=== PATIENT | female | born 1970 | race Caucasian/White ===

== ENCOUNTER → 2016-03-05 | Outpatient (CLI) | payer BC ==
[~2016-03-05] MED LIST: ACHYD1T PO; ALPR.5T; ALPR.5T PO; BYETTA; DCS100C PO; ESTR1TAB24 PO; IBP800T PO; METF-380 PO; METF500T8
--- OUTSIDE RECORDS SUMMARY | 2016-03-05 13:03 | XMS REPORT | Continuity of Care Document ---
Author Author [facility] Organization [facility] Address Unknown Phone Unavailable Care Team Providers Care Landscape Manager Name Role Phone PCP Unavailable Source Comments Some departments are not documenting in the electronic medical record. If you do not see the information that you expected, contact Release of Information in the Health Information Management department at [phone] for further assistance in locating additional records.[facility] Active Allergies and Adverse Reactions Allergen Noted Date Severity Reactions Comments Tetracycline 10/13/2010 High UNKNOWN Patient reports that as a that she received tetracycline & had "brain swelling". Has not had it since. Current Medications Prescription Sig. Disp. Refills Start End Date Status Date metFORMIN (GLUCOPHAGE) Take 1,000 mg by mouth Active 500 mg PO tablet twice daily with meals. States takes "ER" type. ALPRAZolam (XANAX) 0.25 Take 0.25 mg by mouth Active mg PO tablet twice daily as needed. Active Problems Problem Noted Date Localized adiposity - abdomen, flanks 07/10/2012 Breast ptosis 07/10/2012 Social History Tobacco Use Types Packs/Day Years Used Date Current Every Day Smoker 0.5 15 Smokeless Tobacco: Never Used Last Filed Vital Signs Vital Sign Reading Time Taken Blood Pressure 125/79 10/13/2010 10:04 AM CDT Pulse 69 10/13/2010 10:04 AM CDT Temperature - - Respiratory Rate 16 10/13/2010 10:04 AM CDT Height 1.702 m (5' 7") 10/13/2010 10:04 AM CDT Weight 80.287 kg (177 lb) 10/13/2010 10:04 AM CDT Body Mass Index 27.72 10/13/2010 10:04 AM CDT Oxygen Saturation - - Plan of Care Health Maintenance Due Date Last Done Comments Pertussis Vaccine 02/05/1979 Tetanus Vaccine 02/05/1985 Physical (Comprehensive) 07/14/2011 07/13/2010 Exam Breast Cancer Screening 02/13/2012 02/12/2010 Cervical Cancer Screening 07/13/2013 07/13/2010 Influenza Vaccine 10/16/2015 Results from Last 3 Months Not on file
--- NOTE | 2016-03-05 13:53 | Diagnostic Imaging Report ---
Bilateral screening mammogram. The current study was also evaluated with a Computer Aided Detection (CAD) system. INDICATION: Screening. No current complaints stated on the questionnaire. COMPARISON: 01/03/2014. FINDINGS: The breasts are composed of scattered fibroglandular densities. There are occasional benign-appearing calcifications. Allowing for technique and positional differences, no suspicious change is seen. IMPRESSION: No significant change. ACR BI-RADS Category 2: Benign findings. Result letter will be mailed to the patient. Note: At least 10% of breast cancer is not imaged by mammography. Dictated by: Dictated on workstation # [id number]
== END ==
LOC: RAD 12:59
PROVIDERS: ATTEND Nurse Practitioner Family
DX: Z12.31 Encounter for screening mammogram for malignant neoplasm of breast (principal)

== ENCOUNTER → 2020-01-15 | Outpatient (CLI) | payer OTHER ==
--- NOTE | 2020-01-15 13:04 | Diagnostic Imaging Report ---
INDICATION: Routine screening. COMPARISON: 03/05/2016 and 01/03/2014. TECHNIQUE: 2D and 3D bilateral screening mammography was performed with CAD. FINDINGS: Scattered fibroglandular densities are identified bilaterally. Tiny benign-appearing nodules in the right breast appear stable. No spiculated mass or malignant appearing microcalcifications are seen. There are benign calcifications in both breasts. The axillae are unremarkable. IMPRESSION: No mammographic features suspicious for malignancy are identified. ACR BI-RADS Category 2: Benign findings. Result letter will be mailed to the patient. Note: At least 10% of breast cancer is not imaged by mammography. Dictated by: Dictated on workstation # [id number]
== END ==
LOC: RAD 10:22
DX: Z12.31 Encounter for screening mammogram for malignant neoplasm of breast (principal)
CPT/HCPCS: 77063; 77067

== ENCOUNTER → 2020-03-07 | Outpatient (CLI) | payer OTHER ==
--- NOTE | 2020-03-07 10:35 | Diagnostic Imaging Report ---
EXAMINATION: CHEST (PA AND LATERAL) CLINICAL INDICATION: 50-year-old female, wheezing. COMPARISON: None. FINDINGS: Heart size and mediastinal contours are unremarkable. There is no identified pneumothorax. There is no pleural effusion. There is no identified focal airspace consolidation. IMPRESSION: No identified acute cardiopulmonary abnormality. Dictated by: Dictated on workstation # [id number]
== END ==
LOC: RAD 10:05
DX: J06.9 Acute upper respiratory infection, unspecified (principal)
CPT/HCPCS: 71046

== ENCOUNTER → 2021-06-26 | Outpatient (CLI) | payer OTHER ==
--- NOTE | 2021-06-26 11:17 | Diagnostic Imaging Report ---
Indication: Bilateral 3-D digital screening with CAD. CAD is utilized. The current study was also evaluated with a Computer Aided Detection (CAD) system. COMPARISON: 01/2020, 02/2016 and 12/2013. FINDINGS: Density 1. No breast mass, spiculated lesion, architectural distortion, suspicious calcifications or interval changes. IMPRESSION: BI-RADS Category 1 ACR BI-RADS Category 1: Negative. Result letter will be mailed to the patient. Note: At least 10% of breast cancer is not imaged by mammography. Dictated by: Dictated on workstation # [id number]
== END ==
LOC: RAD 09:00
DX: Z12.31 Encounter for screening mammogram for malignant neoplasm of breast (principal)
CPT/HCPCS: 77063; 77067

== ENCOUNTER → 2021-09-14 | Outpatient (CLI) | payer OTHER ==
--- NOTE | 2021-09-14 14:25 | Diagnostic Imaging Report ---
INDICATION: Wheezing for the last month. Cough. EXAMINATION: 2 view chest 09/14/2021 COMPARISON: 03/07/2020 FINDINGS: The cardiomediastinal silhouette is unremarkable. The pulmonary vasculature is within normal limits. The lungs and pleural spaces are clear. IMPRESSION: No evidence of an acute cardiopulmonary process. Dictated by: Dictated on workstation # [id number]
== END ==
LOC: RAD 13:34
PROVIDERS: ATTEND Nurse Practitioner Family
DX: R06.2 Wheezing (principal); R05.9 Cough, unspecified; R49.9 Unspecified voice and resonance disorder
CPT/HCPCS: 71046

== ENCOUNTER → 2022-03-26 | Outpatient (CLI) | payer OTHER | LOC: CARD 11:47 | PROVIDERS: ATTEND Nurse Practitioner Family | DX: R00.2 Palpitations (principal) | CPT/HCPCS: 93005 ==

== ENCOUNTER 2022-10-26 18:43 | Emergency (ER) | payer OTHER ==
[~2022-10-26] VITALS: Ht 167 cm; Wt 72.5 kg
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
--- NOTE | 2022-10-26 19:45 | Diagnostic Imaging Report ---
Indication: Left heel injury and pain. Time of Exam: 7:43 PM 2 views of the left calcaneus were obtained. There is a large plantar calcaneal spur. No fracture is identified. Subtalar joint is unremarkable. IMPRESSION: No acute bony abnormality is detected. Dictated by: Dictated on workstation # [id number]
[2022-10-26 19:55] VITALS: BP 157/96
== END 2022-10-26 19:55 | disposition home or self-care (01) ==
LOC: EDUNIT# 18:43 → ER 18:46
DX: S90.32XA Contusion of left foot, initial encounter (principal); W22.8XXA Striking against or struck by other objects, initial encounter; Y92.89 Other specified places as the place of occurrence of the external cause; Y93.89 Activity, other specified
CPT/HCPCS: 73650

== ENCOUNTER → 2022-12-06 | Outpatient (CLI) | payer OTHER ==
--- NOTE | 2022-12-06 12:29 | Diagnostic Imaging Report ---
INDICATION: Routine screening. COMPARISON: 06/26/2021 and 01/15/2020. TECHNIQUE: 2D and 3D bilateral screening mammography was performed with CAD. FINDINGS: Scattered fibroglandular densities are identified bilaterally. The parenchymal pattern is stable. No mass or malignant-appearing microcalcifications are seen. There are benign calcifications bilaterally. The axillae are unremarkable. IMPRESSION: No mammographic features suspicious for malignancy are identified. ACR BI-RADS Category 2: Benign findings. Result letter will be mailed to the patient. Note: At least 10% of breast cancer is not imaged by mammography. Dictated by: Dictated on workstation # [id number]
== END ==
LOC: RAD 09:30
PROVIDERS: ATTEND Nurse Practitioner Family
DX: Z12.31 Encounter for screening mammogram for malignant neoplasm of breast (principal)
CPT/HCPCS: 77063; 77067